=== PATIENT | female | born 1995 ===

== ENCOUNTER 2018-06-19 12:08 | Emergency (ER) | payer SELFPAY ==
[2018-06-19 12:08] VITALS: BMI 23.1
[2018-06-19 12:13] VITALS: TEMP 98.2
--- NOTE | 2018-06-19 12:43 | ED PDOC ---
HPI: Back Time Seen by Provider: 06/19/18 12:18 Chief Complaint (Nursing): Back Pain Chief Complaint (Provider): Low Back Pain History Per: Patient History/Exam Limitations: no limitations Onset/Duration Of Symptoms: Days (x7) Current Symptoms Are (Timing): Still Present Quality Of Discomfort: Other (tightness) Associated Symptoms: None Exacerbating Factor(s): Movement Additional Complaint(s): Patient is a 23 y/o female with a past medical history of asthma and chronic back pain since childhood who presents to the ED for evaluation of lower back pain ongoing for the past week. Patient claims the episodes of back pain have become more frequent since giving to her son in 2014. Patient states she had an MRI in the past and thinks it may have demonstrated a herniated disc. Patient reports the quality of the pain as a tightness, rated an 8/10. Patient denies any recent falls or trauma, fever, urinary symptoms, numbness or weakness, incontinence, abdominal pain, chest pain, radiation of pain, shortness of breath and N/V/D. Patient has not taken any medications for relief [employer]. Of note, patients last period was on 06/13/2018. PCP: None Provided Past Medical History Reviewed: Historical Data, Nursing Documentation, Vital Signs Vital Signs: Last Vital Signs Temp 98.2 F 06/19/18 12:11 Pulse 82 06/19/18 12:11 Resp 18 06/19/18 12:11 BP 156/89 H 06/19/18 12:11 Pulse Ox 99 06/19/18 12:11 - Medical History PMH: Asthma, Back Problems Other PMH: possible herniated disc - Surgical History Surgical History: (x 1) - Family History Family History: States: No Known Family Hx - Social History Current smoker - smoking cessation education provided: No Ex-Smoker (has not smoked in the last 12 months): No Alcohol: None Drugs: Denies - Home Medications Home Medications: Ambulatory Orders Medication Instructions Recorded Albuterol HFA [Ventolin HFA 90 1 puff IH ASDIR #1 unit 07/14/15 mcg/actuation (8 g)] Oseltamivir Phosphate [Tamiflu] 75 mg PO BID #10 tab 07/14/15 RX: Benzonatate 200 mg PO TID PRN #20 capsule 07/14/15 Docusate [Colace] 1 tab PO BID #14 cap 04/08/16 Ondansetron [Zofran Odt] 4 mg PO Q8 PRN #10 odt 04/08/16 RX: Naproxen 1 tab PO BID PRN #14 tab 04/08/16 diaZEpam [Valium] 5 mg PO Q6 PRN #8 tab 04/08/16 oxyCODONE/Acetaminophen [Percocet 1 ea PO Q6 PRN #8 tab 04/08/16 5/325 mg Tab] Cyclobenzaprine [Flexeril] 5 mg PO Q8 PRN #12 tab 06/19/18 Nitrofurantoin Macrocrystals 100 mg PO BID #14 cap 06/19/18 [Macrobid] RX: Naproxen 500 mg PO BID PRN #20 tab 06/19/18 - Allergies Allergies/Adverse Reactions: Allergies Allergy/AdvReac Type Severity Reaction Status Date / Time No Known Allergies Allergy Verified 06/19/18 12:10 Review of Systems ROS Statement: Except As Marked, All Systems Reviewed And Found Negative Constitutional: Negative for: Fever Respiratory: Negative for: Shortness of Breath Gastrointestinal: Negative for: Nausea, Vomiting, Abdominal Pain, Diarrhea Genitourinary Female: Negative for: Dysuria, Incontinence, Hematuria Musculoskeletal: Positive for: Back Pain (lower) Neurological: Negative for: Weakness, Numbness Physical Exam - Reviewed Nursing Documentation Reviewed: Yes Vital Signs Reviewed: Yes - Physical Exam Comments: GENERAL APPEARANCE: Patient is awake, alert, oriented x 3, resting comfortably, in no acute distress. On cell phone. SKIN: Warm, dry; (-) cyanosis. ENMT: Mucous membranes moist. Airway patent, (-) stridor. NECK: Supple, FROM CHEST AND RESPIRATORY: (-) rales, (-) rhonchi, (-) wheezes; breath sounds equal bilaterally. Respirations even and nonlabored. HEART AND CARDIOVASCULAR: (-) irregularity ABDOMEN AND GI: Soft, non-tender. (-) distention. Bowel sounds active x4. (-) guarding, (-) rebound, (-) palpable masses, (-) CVA tenderness. EXTREMITIES: (-) deformity, (-) edema, (+) distal pulses. BACK: (-)midline or sciatic notch tenderness (+) bilateral paralumbar tenderness NEURO AND PSYCH: Mental status as above; (-) focal findings. Gait: steady. Speech: clear. (-) facial asymmetry (-) aphasia. Strength and sensation symmetric to lower extremities. - Laboratory Results Urine POC: Negative Urine dip results: Positive for: Leukocyte Esterase (trace). Negative for: Blood, Nitrate, Ketones, Glucose, Bilirubin, Protein - ECG O2 Sat by Pulse Oximetry: 99 (RA) Pulse Ox Interpretation: Normal Medical Decision Making Medical Decision Making: Time: 1235 Impression: Acute on Chronic Back Pain Plan: -Urine Test -Urine Dipstick -Flexeril 10 mg PO (not driving home) -Toradol 15 mg IM - Re-evaluation 1240 Udip reviewed. U/A ordered. Upreg: negative 1345 U/A reviewed (+) UTI. U/C ordered. Macrobid 100mg PO ordered Repeat BP: 134/76 On re-evaluation, patient reports improvement of symptoms. On exam, patient remains AAOx3, in no acute distress. Vitals stable. Lab/Diagnostic results d/w the patient in great detail. Diagnosis of acute on chronic low back pain, UTI d/w the patient. Based on history, exam and diagnostic results, plan will be for outpatient follow up with clinic/ortho. Patient instructed to follow-up with pmd / referral provided / the clinic in 1- 2 days without fail. Advised to take medication as prescribed. Return to the emergency room at any time for any new or worsening symptoms. Patient states she fully agrees with and understands discharge instructions. States that she agrees with the plan and disposition. Verbalized and repeated discharge instructions and plan. I have given the patient opportunity to ask any additional questions. Scribe Attestation: Documented by Jose Antonio Ro, acting as a scribe for DELVIS Melendez. Provider Scribe Attestation: All medical record entries made by the Scribe were at my direction and personally dictated by me. I have reviewed the chart and agree that the record accurately reflects my personal performance of the history, physical exam, medical decision making, and the department course for this patient. I have also personally directed, reviewed, and agree with the discharge instructions and disposition. Disposition - Clinical Impression Clinical Impression: Low back pain, Musculoskeletal back pain, UTI (urinary tract infection) - Patient ED Disposition Is Patient to be Admitted: No Counseled Patient/Family Regarding: Studies Performed, Diagnosis, Need For Followup, Rx Given - Disposition Referrals: [facility] [Outside] David Gaytan III, MD [Staff Provider] - Disposition: Routine/Home Disposition Time: 13:45 Condition: STABLE Additional Instructions: The emergency medical care you received today was directed at your acute symptoms. If you were prescribed any medication, please fill it and take as directed. It may take several days for your symptoms to resolve. Return to the Emergency Department if your symptoms worsen, do not improve, or if you have any other problems. Please contact your doctor in 2 days for re-evaluation and follow up / or call one of the physicians/clinics you have been referred to that are listed on the Patient Visit Information form that is included in your discharge packet. Bring any paperwork you were given at discharge with you along with any medications you are taking to your follow up visit. Our treatment cannot replace ongoing medical care by a primary care provider (PCP) outside of the emergency department. Prescriptions: Cyclobenzaprine [Flexeril] 5 mg PO Q8 PRN #12 tab PRN Reason: Muscle Spasm RX: Naproxen 500 mg PO BID PRN #20 tab PRN Reason: Pain, Moderate (4-7) Nitrofurantoin Macrocrystals [Macrobid] 100 mg PO BID #14 cap Instructions: Urinary Tract Infections in Adults, Low Back Pain in Adults, Herniated Disc, Muscle and Bone Pain (DC) Forms: [employer] (Bahraini) Print Language: OCCITAN - POA Present On Arrival: None Results - Lab Results Lab Results: 06/19/18 13:19 Urine Color Yellow Urine Clarity Cloudy Urine pH 7.0 Ur Specific [place] 1.016 Urine Protein Negative Urine Glucose (UA) Neg Urine Ketones Negative Urine Blood Negative Urine Nitrate Negative Urine Bilirubin Negative Urine Urobilinogen 0.2-1.0 Ur Leukocyte Esterase Small Urine RBC (Auto) 2 Urine Microscopic WBC 8 H Ur Squamous Epith Cells 9 H Amorphous Sediment Occ H Urine Bacteria Mod H Urine Yeast (Budding) Few H
[2018-06-19 13:33] LABS: SQUAMOUS EPITHIAL 9 /hpf (0-5); URINE AMORPHOUS SEDIMENT OCC /ul (<OCC); URINE BACTERIA MOD (<OCC); URINE BILIRUBIN NEGATIVE (NEGATIVE); URINE BLOOD NEGATIVE (NEGATIVE); URINE CLARITY CLOUDY (Clear); URINE COLOR YELLOW (YELLOW); URINE GLUCOSE (UA) NEG (NEGATIVE); URINE LEUKOCYTE ESTERASE SMALL Leu/uL (Negative); URINE PROTEIN NEGATIVE (NEGATIVE); URINE UROBILINOGEN 0.2-1.0 mg/dL (0.2-1.0)
[2018-06-19 13:59] VITALS: BP 134/76; PULSE 80; RESP 16
[2018-06-19 14:19] VITALS: O2SAT 99
== END 2018-06-19 14:20 | disposition home or self-care (01) ==
LOC: H.ER 12:08
DX: N39.0 Urinary tract infection, site not specified (principal); M54.5 Low back pain
CPT/HCPCS: 81003; 81025; 87086; 96372; 99282; J1885

== ENCOUNTER 2018-07-07 15:10 | Emergency (ER) | payer SELFPAY ==
[2018-07-07 15:10] VITALS: BMI 23.1
[2018-07-07 15:19] VITALS: BP 127/81; PULSE 90; RESP 14; TEMP 98.3; O2SAT 100
[2018-07-07] MEDS ORDERED: Lidocaine 5% Patch TD STA (15:31)
[2018-07-07] MEDS ORDERED: Lidocaine 5% Patch TD ONE (16:02)
--- NOTE | 2018-07-07 16:06 | ED PDOC ---
HPI: Back Time Seen by Provider: 07/07/18 15:22 Chief Complaint (Nursing): Back Pain Chief Complaint (Provider): Back Pain History Per: Patient History/Exam Limitations: no limitations Onset/Duration Of Symptoms: Days (x2) Current Symptoms Are (Timing): Still Present Quality Of Discomfort: "Pain" Previous Symptoms: Back Pain Additional Complaint(s): 23 year old female with a history of back problems and asthma presents to the ED with x2 days of atraumatic, nonradiating low back pain. She has had back pain for as long as she can remember. Patient has been diagnosed with herniated discs in the past. Her last visit to the ED was in May for the same symptoms and was prescribed Naproxen and Flexeril, both of which provided good relief. She no longer has either medication and has not taken any other medications to help relief symptoms. Patient denies incontinence, dysuria, hematuria, new trauma, abdominal pain, weakens, fever or chills. PMD: none provided Past Medical History Reviewed: Historical Data, Nursing Documentation, Vital Signs Vital Signs: Last Vital Signs Temp 98.3 F 07/07/18 15:18 Pulse 90 07/07/18 15:18 Resp 14 07/07/18 15:18 BP 127/81 07/07/18 15:18 Pulse Ox 100 07/07/18 15:18 - Medical History PMH: Asthma, Back Problems - Surgical History Surgical History: (x 1) - Family History Family History: States: Unknown Family Hx - Immunization History Hx Tetanus Toxoid Vaccination: No Hx Influenza Vaccination: No Hx Pneumococcal Vaccination: No - Home Medications Home Medications: Ambulatory Orders Medication Instructions Recorded Albuterol HFA [Ventolin HFA 90 1 puff IH ASDIR #1 unit 07/14/15 mcg/actuation (8 g)] Oseltamivir Phosphate [Tamiflu] 75 mg PO BID #10 tab 07/14/15 RX: Benzonatate 200 mg PO TID PRN #20 capsule 07/14/15 Docusate [Colace] 1 tab PO BID #14 cap 04/08/16 Ondansetron [Zofran Odt] 4 mg PO Q8 PRN #10 odt 04/08/16 RX: Naproxen 1 tab PO BID PRN #14 tab 04/08/16 diaZEpam [Valium] 5 mg PO Q6 PRN #8 tab 04/08/16 oxyCODONE/Acetaminophen [Percocet 1 ea PO Q6 PRN #8 tab 04/08/16 5/325 mg Tab] Cyclobenzaprine [Flexeril] 5 mg PO Q8 PRN #12 tab 06/19/18 Nitrofurantoin Macrocrystals 100 mg PO BID #14 cap 06/19/18 [Macrobid] RX: Naproxen 500 mg PO BID PRN #20 tab 06/19/18 Cyclobenzaprine [Cyclobenzaprine 10 mg PO Q8 PRN #10 tab 07/07/18 HCl] Nitrofurantoin Macrocrystals 100 mg PO BID #6 cap 07/07/18 [Macrobid] RX: Naproxen [Naprosyn] 500 mg PO BID PRN #10 tab 07/07/18 - Allergies Allergies/Adverse Reactions: Allergies Allergy/AdvReac Type Severity Reaction Status Date / Time No Known Allergies Allergy Verified 07/07/18 15:17 Review of Systems ROS Statement: Except As Marked, All Systems Reviewed And Found Negative Constitutional: Negative for: Fever, Chills, Weakness Gastrointestinal: Negative for: Abdominal Pain Genitourinary Female: Negative for: Dysuria, Frequency, Incontinence, Hematuria Musculoskeletal: Positive for: Back Pain Physical Exam - Reviewed Nursing Documentation Reviewed: Yes Vital Signs Reviewed: Yes - Physical Exam Appears: Positive for: No Acute Distress Skin: Positive for: Normal Color, Warm, Dry Eye Exam: Positive for: EOMI, Normal appearance, PERRL Gastrointestinal/Abdominal: Positive for: Normal Exam, Soft. Negative for: Tenderness Back: Positive for: Normal Inspection, Muscle Spasm (mild). Negative for: L CVA Tenderness, R CVA Tenderness, Vertebral Tenderness Extremity: Positive for: Normal ROM (upper and lower) Neurologic/Psych: Positive for: Alert, Oriented (x3) - ECG O2 Sat by Pulse Oximetry: 100 (RA) Pulse Ox Interpretation: Normal - Progress Condition: Re-examined, Improved (gait steady, unassisted) Medical Decision Making Medical Decision Making: Time: 1530 Plan: --Drug screen --U preg --Flexeril 10 mg PO --Lidocaine --Toradol 30 mg IM --UA Scribe Attestation: Documented by Piper Lester, acting as a scribe for Bebo Kamara PA-C Provider Scribe Attestation: All medical record entries made by the Scribe were at my direction and personally dictated by me. I have reviewed the chart and agree that the record accurately reflects my personal performance of the history, physical exam, medical decision making, and the department course for this patient. I have also personally directed, reviewed, and agree with the discharge instructions and disposition. Disposition - Clinical Impression Clinical Impression: Low back pain, UTI (urinary tract infection) - Patient ED Disposition Is Patient to be Admitted: No - Disposition Referrals: Francisco Burdick MD [Family Provider] - Disposition: Routine/Home Disposition Time: 16:51 Condition: IMPROVED Additional Instructions: FOLLOW UP WITH YOUR DOCTOR FOR FURTHER EVALUATION RETURN TO ED IMMEDIATELY IF SYMPTOMS WORSEN SHANA DESAI, thank you for letting us take care of you today. Your provider was Dahlia Spann MD and you were treated for BACK PAIN. The emergency medical care you received today was directed at your acute symptoms. If you were prescribed any medication, please fill it and take as directed. It may take several days for your symptoms to resolve. Return to the Emergency Department if your symptoms worsen, do not improve, or if you have any other problems. Please contact your doctor or call one of the physicians/clinics you have been referred to that are listed on the Patient Visit Information form that is included in your discharge packet. Bring any paperwork you were given at discharge with you along with any medications you are taking to your follow up visit. Our treatment cannot replace ongoing medical care by a primary care provider outside of the emergency department. Thank you for allowing the [facility] team to be part of your care today. If you had an X-Ray or CT scan: A Radiologist will review the ED reading if any change in treatment is needed we will contact you. If you had a blood, urine, or wound culture: It will take several days for the results, if any change in treatment is needed we will contact you. If you had an STI test: It will take 48 hours for the results. Please call after 1 week if you have not heard back. Prescriptions: Cyclobenzaprine [Cyclobenzaprine HCl] 10 mg PO Q8 PRN #10 tab PRN Reason: Muscle Spasm RX: Naproxen [Naprosyn] 500 mg PO BID PRN #10 tab PRN Reason: Pain Nitrofurantoin Macrocrystals [Macrobid] 100 mg PO BID #6 cap Instructions: Urinary Tract Infections in Adults, Low Back Pain (DC) Forms: [employer] (Yemeni) Print Language: ESTONIAN
[2018-07-07 16:30] LABS: SQUAMOUS EPITHIAL 3 /hpf (0-5); URINE BILIRUBIN NEGATIVE (NEGATIVE); URINE BLOOD NEGATIVE (NEGATIVE); URINE CLARITY SLIGHTY-CLOUDY (Clear); URINE COLOR STRAW (YELLOW); URINE GLUCOSE (UA) NEG (NEGATIVE); URINE LEUKOCYTE ESTERASE TRACE Leu/uL (Negative); URINE PROTEIN NEGATIVE (NEGATIVE); URINE UROBILINOGEN 0.2-1.0 mg/dL (0.2-1.0)
[2018-07-07 16:40] LABS: BARBITURATES, UR NEGATIVE (NEGATIVE); BENZODIAZEPINES, UR NEGATIVE (NEGATIVE); OPIATES, UR NEGATIVE (NEGATIVE); PHENCYCLIDINE, UR NEGATIVE (NEGATIVE)
== END 2018-07-07 17:08 | disposition home or self-care (01) ==
LOC: H.ER 15:10
DX: M54.5 Low back pain (principal); N39.0 Urinary tract infection, site not specified
CPT/HCPCS: 81003; 81025; 87086; 96372; 99283; G0480; J1885